=== PATIENT | male | born 1995 | race American Indian/Alaskan Native ===

== ENCOUNTER 2021-07-21 08:26 | Emergency (ER) | payer SELFPAY ==
[2021-07-21 08:39] VITALS: BP 112/72
[2021-07-21] MEDS ORDERED: ACETAMINOPHEN 325 MG TAB PO ONE (11:08)
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
== END 2021-07-21 12:38 | disposition home or self-care (01) ==
LOC: ED 08:26
DX: S09.90XA Unspecified injury of head, initial encounter (principal); V89.2XXA Person injured in unspecified motor-vehicle accident, traffic, initial encounter; Y93.89 Activity, other specified; Y92.89 Other specified places as the place of occurrence of the external cause; Y99.8 Other external cause status
CPT/HCPCS: 70450; 99283